=== PATIENT | female | born 1990 | race Caucasian/White ===

== ENCOUNTER 2020-02-28 09:20 | Emergency (ER) | payer OTHER ==
--- NOTE | 2020-02-28 10:39 | RAD ---
EXAM: Chest one view: HISTORY: Cough COMPARISON: None FINDINGS: Poor inspiration Heart size: Within normal limits. Lungs: Patchy bilateral alveolar, interstitial, and groundglass opacity changes concerning for bilate ral Covid pneumonia. No pneumothorax or other acute process. IMPRESSION: Evidence for bilateral Covid pneumonia.
== END 2020-02-28 10:50 | disposition home or self-care (01) ==
LOC: MADERS 09:20
DX: U07.1 COVID-19 (principal); J12.82 Pneumonia due to coronavirus disease 2019
CPT/HCPCS: 71045

== ENCOUNTER 2024-04-11 08:06 | Emergency (ER) | payer MEDICAID, OTHER | END 2024-04-11 09:11 | disposition home or self-care (01) | LOC: MADERS 08:06 | DX: S63.501A Unspecified sprain of right wrist, initial encounter (principal); W18.2XXA Fall in (into) shower or empty bathtub, initial encounter | CPT/HCPCS: 99283 ==